=== PATIENT | female | born 1960 | race Caucasian/White ===

== ENCOUNTER → 2018-08-24 | Day surgery (SDC) | payer OTHER ==
[2018-08-23 12:39] LABS: BASOPHILS # (AUTO) 0.1 (0.0-0.1); BASOPHILS % 2.1 % (0.0-1.0); EOSINOPHILS # (AUTO) 0.3 (0.0-0.4); EOSINOPHILS % 5.5 % (0.0-6.0); HEMATOCRIT 39.4 % (38.2-49.6); HEMOGLOBIN 13.1 g/dL (14.0-18.0); LYMPHOCYTES # (AUTO) 1.5 (1.0-3.2); LYMPHOCYTES % 29.1 % (18.0-39.1); MEAN CORPUSCULAR HEMOGLOBIN 28.4 pg (28-32); MEAN CORPUSCULAR HGB CONC 33.2 g/dL (31-35); MEAN CORPUSCULAR VOLUME 85.5 fL (81-99); MONOCYTES # (AUTO) 0.5 (0.2-0.8); MONOCYTES % 8.8 % (4.4-11.3); NEUTROPHILS # (AUTO) 2.8 (2.1-6.9); NEUTROPHILS % 54.3 % (38.7-80.0); PLATELET COUNT 218 x10e3/uL (140-360); RED BLOOD COUNT 4.61 x10e6/uL (4.3-5.7); RED CELL DISTRIBUTION WIDTH 12.7 % (11.7-14.4)
[2018-08-23 12:57] LABS: ALANINE AMINOTRANSFERASE 18 IU/L (0-55); ALBUMIN 3.8 g/dL (3.5-5.0); ALBUMIN/GLOBULIN RATIO 1.2 (0.8-2.0); ALKALINE PHOSPHATASE 59 IU/L (40-150); ANION GAP 10.9 mmol/L (8-16); BLOOD UREA NITROGEN 14 mg/dL (7-26); BUN/CREATININE RATIO 18 (6-25); CALCIUM 9.2 mg/dL (8.4-10.2); CARBON DIOXIDE 27 mmol/L (22-29); CHLORIDE 104 mmol/L (98-107); CREATININE, SERUM 0.78 mg/dL (0.72-1.25); EST GLOMERULAR FILTRATION RATE > 60 ML/MIN (60-); GLUCOSE 87 mg/dL (74-118); POTASSIUM 3.9 mmol/L (3.5-5.1); SODIUM 138 mmol/L (136-145)
[~2018-08-24] VITALS: Ht 167.6 cm; Wt 54.9 kg
[2018-08-24] VITALS (8 sets, daily range): BP systolic 111–139; BP diastolic 70–99
[~2018-08-24] MED LIST: ALPRAZOLAM 0.5 MG TAB ONE; DIPHENHYDRAMINE HCL 25 MG CAP ONE; FENTANYL CITRATE/PF 100MCG/2 ML INJ ONE; FISH OIL PO; HEPARIN SOD (PORCINE) 1000 UNIT/ML 30ML ONE; HEPARIN SOD/SOD CHLORIDE 2,000 ML ONE; IOPAMIDOL 370 MG/ML 200 ML INFUS..BTL INJ ONE; LIDOCAINE HCL 2% LOCAL 20 ML VIAL ONE; MAGNESIUM PO; MIDAZOLAM HCL 2 MG/2 ML VIAL ONE; MULTIVITAMINS1 EAC8 PO; NITROGLYCERIN/D5W 200 MCG/ML 250 ML ONE; SODIUM CHLORIDE 0.9% 1000ML 1,000 ML ONE; VERAPAMIL HCL 2.5 MG/ML 2 ML VIAL ONE; [UNRECOGNIZED DRUG - OTHER] PO
--- NOTE | 2018-08-24 12:00 | NUR ---
1200 Received pt ambulatory Identiferx2 to Rm #9 [facility], Dr. Escoto rt arm radial approach.(PT WITH RT LUMPECTOMY HX -Rt arm pink band) Bilateral femoral sites prepped Left arm ac #20 Placed by Nathalie JACQUES. Preop meds given and 1000ns at bedside. Denies CP or SOB monitor in sinus rhythm. at bedside .Mor ([phone])Friend Nano .Side rails up and call light at bedside Bed in low position.Walked to bathroom and instructed not to get up since is medicated. Will call for assistance. ds/rn
--- NOTE | 2018-08-24 14:10 | NUR ---
1410 received pt in rm #9 s/o [facility] Dr Escoto findings clear vessels via rt TR band approach. Site intact with 11cc air in balloon for titration a 1500. No gross signs of pain,pallor,pressure or dysrhythmia. Iv 0.8NS infusing left ac, No signs of infiltration. at bedside. Reviewed POC and and has copies for dc . Assisted with po intake tolerated well.Voids qs. Bilateral PPx4 PT/DP Pt back to baseline orientation. Resp regular at 98% sat.Abdomen soft and nontender denies necessity to defecate. PPx4 PT/DP palpable less 3sec capillary refill. OK dc at 1600pm. ds/rn
--- NOTE | 2018-08-24 15:00 | NUR ---
1500 TR band titration initiated (11ccc volume balloon )-2cc, positive 9cc no sign bleeding,hematoma ,radial pulse present. 1515 -2cc, positive 7cc no bleeding radial pulse adequate. 1530 -2cc ,positive 5cc no bleeding radial pulse adequate. 1545 -2cc no balloon volume titration completed no s/s bleeding ,radial pulse present ,Coban with 2x2 gauze with wrist splint in place stasis achieve with adequate radial pulse no hematoma. Ready for dc,dressed and as class b driver ,pt dc per wc stable w/o c/o CP or SOB No gross signs of pain,pallor,pressure or dysthymia. For sherif 2wks Dr Escoto office. ds/rn
--- NOTE | 2018-08-24 16:00 | NUR ---
1600 Tr band titration successful no gross issues of pain pallor or dysrhythmia. Pt stable with Coban and arm splint Aware of importance of f/o care and aware of dc instructions and has copies. Escorted to car with school bus driver/teacher assistant per w/c denies co and is tolerating po intake back to baseline orientation. Iv out and 2x2 dressing with Coban No s/s infiltration. ds/rn
--- NOTE | 2018-08-26 00:19 | Operative Report ---
DATE OF PROCEDURE: 08/24/2018 SURGEON: Ronald Escoto MD INDICATION: Coronary artery disease, abnormal stress test. PROCEDURES PERFORMED: 1. Left heart catheterization, selective coronary angiography, left ventriculography. 2. Deployment of right wrist TR band. COMPLICATIONS: None. RECOMMENDATIONS: Medical therapy. DESCRIPTION OF PROCEDURE: Access was obtained in the right radial artery. A 5-Danish sheath was placed. Diagnostic coronary angiogram revealed no angiographic coronary artery disease. Excellent flow in all vessels without any critical stenosis. CONCLUSION: Right coronary artery is nondominant, LV ejection fraction 70%, LV end-diastolic pressure of 8. No gradient across the aortic valve pullback. Right wrist sheath and guide removed. TR band applied. The patient discharged home on the same day. Ronald Escoto MD [facility]/MOD[facility] /[id number]
== END | disposition home or self-care (01) ==
LOC: CATH LAB 11:48 → EDSEX 11:48
PROVIDERS: ATTEND Internal Medicine Interventional Cardiology
DX: I25.10 Atherosclerotic heart disease of native coronary artery without angina pectoris (principal); R94.39 Abnormal result of other cardiovascular function study; M79.605 Pain in left leg; M79.604 Pain in right leg; Z88.2 Allergy status to sulfonamides; Z01.812 Encounter for preprocedural laboratory examination; Z79.82 Long term (current) use of aspirin
CPT/HCPCS: 36415; 80053; 85025; 93458; C1769; C1887; J1644; J2001; J2250; J7030; Q9967